=== PATIENT | male | born 2005 | race Caucasian/White ===

== ENCOUNTER 2024-03-27 10:32 | Emergency (ER) | payer BC ==
[~2024-03-27] VITALS: Ht 182.9 cm; Wt 84.1 kg
[2024-03-27 10:45] VITALS: BP 135/87; TEMP 98.2
[2024-03-27 11:34] VITALS: PULSE 70
== END 2024-03-27 11:34 | disposition home or self-care (01) ==
LOC: COL.ER 10:32
DX: S61.012A Laceration without foreign body of left thumb without damage to nail, initial encounter (principal); W25.XXXA Contact with sharp glass, initial encounter

== ENCOUNTER 2024-07-14 11:40 | Emergency (ER) | payer BC ==
[~2024-07-14] VITALS: Ht 182.9 cm; Wt 81.8 kg
[2024-07-14 11:48] VITALS: TEMP 98.2
[2024-07-14] MEDS ORDERED: CEPHALEXIN500 M1 PO (12:54)
[2024-07-14] MEDS ORDERED: cefTRIAXone 1 G,Lidocaine PF 1% 2.1 ML IM ONE (13:00)
[2024-07-14 13:54] VITALS: BP 111/55; PULSE 65
== END 2024-07-14 13:54 | disposition home or self-care (01) ==
LOC: COL.ER 11:40
DX: M79.622 Pain in left upper arm (principal); R21 Rash and other nonspecific skin eruption
CPT/HCPCS: J0696